=== PATIENT | female | born 1995 | race Caucasian/White ===

== ENCOUNTER 2024-01-30 20:42 | Emergency (ER) | payer SELFPAY ==
[~2024-01-30] VITALS: Ht 165.1 cm; Wt 110.7 kg
[2024-01-30 21:44] LABS: BASO % 0.4 % (0.0-1.0); EOS # 0.4 10^3/uL (0.0-0.5); EOS % 3.8 % (0.0-3.0); HEMATOCRIT 36.7 % (36.0-47.0); HEMOGLOBIN 11.7 g/dl (12.0-15.5); LYMPH # 3.3 10^3/uL (1.5-5.0); LYMPH % 33.6 % (24.0-44.0); MEAN CORPUSCULAR HEMOGLOBIN 27.3 pg (27.0-33.0); MEAN CORPUSCULAR HGB CONC 31.9 g/dl (32.0-36.5); MEAN CORPUSCULAR VOLUME 85.7 fl (80.0-96.0); MONO # 0.5 10^3/uL (0.0-0.8); MONO % 4.7 % (2.0-8.0); NEUTROPHILS # 5.6 10^3/uL (1.5-8.5); NEUTROPHILS % 57.3 % (36.0-66.0); PLATELET COUNT, AUTOMATED 344 10^3/uL (150-450); RED BLOOD COUNT 4.28 10^6/uL (4.00-5.40); WHITE BLOOD COUNT 9.8 10^3/uL (4.0-10.0)
[2024-01-30 22:09] LABS: LIPASE 31 U/L (12-53)
[2024-01-30 22:11] LABS: ALBUMIN 3.3 G/DL (3.2-5.2); ALKALINE PHOSPHATASE 81 U/L (46-116); ALT/SGPT 33 U/L (7.0-40); AST/SGOT 16 U/L (<34); BILIRUBIN,DIRECT < 0.1 MG/DL (<0.4); BILIRUBIN,TOTAL < 0.2 MG/DL (0.3-1.2); BLOOD UREA NITROGEN 13 MG/DL (9-23); CALCIUM LEVEL 8.6 MG/DL (8.5-10.1); CARBON DIOXIDE LEVEL 29 MMOL/L (20-31); CHLORIDE LEVEL 108 MMOL/L (98-107); CREATININE FOR GFR 0.66 MG/DL (0.55-1.30); GLOMERULAR FILTRATION RATE > 60.0 (>60); GLUCOSE, FASTING 85 MG/DL (60-100); POTASSIUM SERUM 4.8 MMOL/L (3.5-5.1); SODIUM LEVEL 141 MMOL/L (136-145); TOTAL PROTEIN 6.3 G/DL (5.7-8.2)
[2024-01-30 22:12] LABS: HCG, SERUM QUALITATIVE NEGATIVE (NEGATIVE)
[2024-01-30 23:18] VITALS: BP 143/81; TEMP 98.5; O2SAT 99
[2024-01-31] MEDS ORDERED: LIDO5DIS41 TD (13:54)
== END 2024-01-31 03:17 | disposition left against medical advice (07) ==
LOC: M ED 20:42
DX: Z53.21 Procedure and treatment not carried out due to patient leaving prior to being seen by health care provider (principal)

== ENCOUNTER 2024-01-31 10:52 | Emergency (ER) | payer SELFPAY ==
[~2024-01-31] VITALS: Ht 165.1 cm; Wt 110.1 kg
[2024-01-31 10:55] VITALS: TEMP 97.2
[2024-01-31] MEDS ORDERED: LIDO5DIS41 TD (13:54)
[2024-01-31 14:03] VITALS: BP 126/61; O2SAT 97
[2024-01-31] MEDS: LIDOCAINE 5% (LIDODERM) PATCH TD ONE (14:03)
== END 2024-01-31 14:07 | disposition home or self-care (01) ==
LOC: M ED 10:52
DX: S22.32XA Fracture of one rib, left side, initial encounter for closed fracture (principal); Y92.9 Unspecified place or not applicable; Y93.9 Activity, unspecified; Y99.9 Unspecified external cause status; Y04.0XXA Assault by unarmed brawl or fight, initial encounter; Z88.8 Allergy status to other drugs, medicaments and biological substances; Z88.1 Allergy status to other antibiotic agents; Z91.012 Allergy to eggs; Z79.899 Other long term (current) drug therapy

== ENCOUNTER 2024-03-28 03:04 | Emergency (ER) | payer MEDICAID, SELFPAY ==
[~2024-03-28] VITALS: Ht 165.1 cm; Wt 97.7 kg
[~2024-03-28 03:04] MED LIST: LIDO5DIS41 TD
[2024-03-28 03:12] VITALS: TEMP 97.6
[2024-03-28] MEDS: IPRATROPIUM 0.5MG/ALBUTEROL 2.5MG INH SOL UD 3ML (DUONEB) NEB PRN (04:29)
[2024-03-28] MEDS: dexAMETHasone 20MG/5ML VIAL IV ONE (05:02)
[2024-03-28 05:45] VITALS: BP 157/89; O2SAT 100
[2024-03-28] MEDS ORDERED: PRED10TA2 PO (05:50)
[2024-03-28] MEDS ORDERED: VENTAER INH (05:50)
== END 2024-03-28 06:05 | disposition home or self-care (01) ==
LOC: M ED 03:04
DX: J44.1 Chronic obstructive pulmonary disease with (acute) exacerbation (principal); F17.210 Nicotine dependence, cigarettes, uncomplicated; F10.10 Alcohol abuse, uncomplicated; Z88.8 Allergy status to other drugs, medicaments and biological substances; Z91.012 Allergy to eggs; Z79.51 Long term (current) use of inhaled steroids; Z79.52 Long term (current) use of systemic steroids; Z79.899 Other long term (current) drug therapy
CPT/HCPCS: 94640; 96374; 99284; J1100

== ENCOUNTER 2024-04-14 20:25 | Emergency (ER) | payer SELFPAY ==
[~2024-04-14] VITALS: Ht 165.1 cm; Wt 106.2 kg
[2024-04-14 20:25] VITALS: BP 147/84; TEMP 97.2; O2SAT 98
[~2024-04-14 20:25] MED LIST changes: +PRED10TA2 PO; +VENTAER INH
== END 2024-04-14 20:30 | disposition left against medical advice (07) ==
LOC: M ED 20:25
DX: Z53.21 Procedure and treatment not carried out due to patient leaving prior to being seen by health care provider (principal)

== ENCOUNTER 2024-04-21 14:18 | Emergency (ER) | payer MEDICAID, SELFPAY ==
[~2024-04-21] VITALS: Ht 165.1 cm; Wt 106.4 kg
[2024-04-21 14:31] VITALS: BP 161/93; TEMP 98.8; O2SAT 99
[2024-04-21 15:04] LABS: BASO # 0.1 10^3/uL (0.0-0.2); BASO % 0.7 % (0.0-1.0); EOS # 0.2 10^3/uL (0.0-0.5); EOS % 1.4 % (0.0-3.0); HEMATOCRIT 41.8 % (36.0-47.0); HEMOGLOBIN 13.9 g/dl (12.0-15.5); LYMPH % 27.4 % (24.0-44.0); MEAN CORPUSCULAR HEMOGLOBIN 27.4 pg (27.0-33.0); MEAN CORPUSCULAR HGB CONC 33.3 g/dl (32.0-36.5); MEAN CORPUSCULAR VOLUME 82.3 fl (80.0-96.0); MONO # 0.7 10^3/uL (0.0-0.8); MONO % 6.2 % (2.0-8.0); NEUTROPHILS # 7.1 10^3/uL (1.5-8.5); PLATELET COUNT, AUTOMATED 369 10^3/uL (150-450); RED BLOOD COUNT 5.08 10^6/uL (4.00-5.40); WHITE BLOOD COUNT 11.1 10^3/uL (4.0-10.0)
[2024-04-21 15:27] LABS: BARBITURATES URINE NEGATIVE (NEGATIVE); BENZODIAZEPINES URINE NEGATIVE (NEGATIVE); CANNABINOIDS URINE NEGATIVE (NEGATIVE); COCAINE METABOLITE URINE NEGATIVE (NEGATIVE); METHADONE URINE NEGATIVE (NEGATIVE); OPIATES URINE NEGATIVE (NEGATIVE); PHENCYCLIDINE URINE NEGATIVE (NEGATIVE)
[2024-04-21 15:29] LABS: AMPHETAMINES LEVEL URINE POSITIVE (NEGATIVE)
[2024-04-21 15:31] LABS: HCG, SERUM QUALITATIVE NEGATIVE (NEGATIVE)
[2024-04-21 15:32] LABS: ALBUMIN 4.2 G/DL (3.2-5.2); ALKALINE PHOSPHATASE 80 U/L (46-116); ALT/SGPT 31 U/L (7.0-40); AST/SGOT 44 U/L (<34); BILIRUBIN,DIRECT 0.1 MG/DL (<0.4); BILIRUBIN,TOTAL 0.6 MG/DL (0.3-1.2); BLOOD UREA NITROGEN 9 MG/DL (9-23); CALCIUM LEVEL 9.2 MG/DL (8.5-10.1); CARBON DIOXIDE LEVEL 25 MMOL/L (20-31); CHLORIDE LEVEL 105 MMOL/L (98-107); GLOMERULAR FILTRATION RATE > 60.0 (>60); GLUCOSE, FASTING 106 MG/DL (60-100); LIPASE 33 U/L (12-53); SODIUM LEVEL 136 MMOL/L (136-145); TOTAL PROTEIN 7.6 G/DL (5.7-8.2)
== END 2024-04-21 15:05 | disposition left against medical advice (07) ==
LOC: EDBD 14:18 → M ED 14:18
DX: R10.9 Unspecified abdominal pain (principal); J44.9 Chronic obstructive pulmonary disease, unspecified; F17.200 Nicotine dependence, unspecified, uncomplicated; Z88.5 Allergy status to narcotic agent; Z88.6 Allergy status to analgesic agent; Z91.012 Allergy to eggs; Z79.52 Long term (current) use of systemic steroids; Z79.899 Other long term (current) drug therapy; Z53.9 Procedure and treatment not carried out, unspecified reason

== ENCOUNTER 2024-04-28 20:38 | Inpatient (IN) | payer MEDICAID ==
[~2024-04-28] VITALS: Ht 157.5 cm; Wt 106.0 kg
[2024-04-28 22:38] LABS: HEMATOCRIT 43.8 % (36.0-47.0); HEMOGLOBIN 14.3 g/dl (12.0-15.5); MEAN CORPUSCULAR HEMOGLOBIN 27.5 pg (27.0-33.0); MEAN CORPUSCULAR HGB CONC 32.6 g/dl (32.0-36.5); MEAN CORPUSCULAR VOLUME 84.2 fl (80.0-96.0); PLATELET COUNT, AUTOMATED 385 10^3/uL (150-450); WHITE BLOOD COUNT 16.2 10^3/uL (4.0-10.0)
[2024-04-28] MEDS: HALOPERIDOL LACTATE 5MG/ML VIAL IM ONE (23:00)
[2024-04-28] MEDS: LORazepam 2 MG/ML 1ML VIAL IM ONE (23:00)
[2024-04-28 23:06] LABS: ETHYL ALCOHOL (ETHANOL) < 0.003 % (0.000-0.010)
[2024-04-28 23:08] LABS: ALBUMIN 4.3 G/DL (3.2-5.2); ALKALINE PHOSPHATASE 86 U/L (46-116); ALT/SGPT 24 U/L (7.0-40); AST/SGOT 18 U/L (<34); BILIRUBIN,DIRECT 0.2 MG/DL (<0.4); BILIRUBIN,TOTAL 0.4 MG/DL (0.3-1.2); BLOOD UREA NITROGEN 18 MG/DL (9-23); CALCIUM LEVEL 9.7 MG/DL (8.5-10.1); CARBON DIOXIDE LEVEL 27 MMOL/L (20-31); CHLORIDE LEVEL 108 MMOL/L (98-107); CREATININE FOR GFR 0.61 MG/DL (0.55-1.30); GLOMERULAR FILTRATION RATE > 60.0 (>60); GLUCOSE, FASTING 92 MG/DL (60-100); SALICYLATE LEVEL < 3.0 MG/DL (<30); SODIUM LEVEL 142 MMOL/L (136-145); TOTAL PROTEIN 7.5 G/DL (5.7-8.2)
[2024-04-28 23:10] LABS: THYROID STIMULATING HORMONE 1.191 uIU/ML (0.55-4.78)
[2024-04-28 23:19] LABS: HCG, SERUM QUALITATIVE NEGATIVE (NEGATIVE)
[2024-04-28 23:41] LABS: BARBITURATES URINE NEGATIVE (NEGATIVE); BENZODIAZEPINES URINE NEGATIVE (NEGATIVE); CANNABINOIDS URINE NEGATIVE (NEGATIVE); COCAINE METABOLITE URINE NEGATIVE (NEGATIVE); METHADONE URINE NEGATIVE (NEGATIVE); OPIATES URINE NEGATIVE (NEGATIVE); PHENCYCLIDINE URINE NEGATIVE (NEGATIVE)
[2024-04-28 23:49] LABS: AMPHETAMINES LEVEL URINE POSITIVE (NEGATIVE)
[2024-04-29] MEDS ORDERED: MED REC CURRENTLY UNOBTAINABLE XX SCH (08:40)
[2024-04-29] MEDS ORDERED: HOME MED LIST COMPLETE! XX SCH (13:35)
[2024-04-29] MEDS ORDERED: MOM 30ML SUSPENSION UDC PO PRN (18:30)
[2024-04-29] MEDS ORDERED: MAALOX 30 ML SUSP *UDC PO PRN (18:30)
[2024-04-29 21:40] VITALS: BP 109/66; TEMP 97.8; O2SAT 98
[2024-04-29] MEDS: traZODone 50 MG TAB PO PRN (21:47)
[2024-04-29] MEDS: diphenhydrAMINE 25MG CAP PO PRN (21:47)
[2024-04-30 07:55] LABS: HEMATOCRIT 39.8 % (36.0-47.0); HEMOGLOBIN 12.9 g/dl (12.0-15.5); MEAN CORPUSCULAR HEMOGLOBIN 26.9 pg (27.0-33.0); MEAN CORPUSCULAR HGB CONC 32.4 g/dl (32.0-36.5); MEAN CORPUSCULAR VOLUME 83.1 fl (80.0-96.0); PLATELET COUNT, AUTOMATED 268 10^3/uL (150-450); RED BLOOD COUNT 4.79 10^6/uL (4.00-5.40); WHITE BLOOD COUNT 7.4 10^3/uL (4.0-10.0)
[2024-04-30] MEDS: OLANZapine 5 MG TAB PO SCH (09:00)
[2024-04-30] MEDS: NICOTINE 21MG/24HR 1 EA TRANSDERMAL TD SCH (10:03)
[2024-04-30] MEDS: OLANZapine ORAL DISINTEGRATING TAB 5MG PO PRN (16:02)
[2024-04-30] MEDS: LORazepam 2 MG TAB PO ONE (16:18)
[2024-04-30 16:48] VITALS: BP 120/77; TEMP 97.9; O2SAT 100
[2024-04-30] MEDS: IBUPROFEN 400MG TAB PO PRN (21:48)
[2024-05-01 06:40] VITALS: BP 115/57; TEMP 98.1; O2SAT 97
[2024-05-01] MEDS: NICOTINE 14 MG/24 HR TRANSDERMAL TD ONE (19:07)
[2024-05-01] MEDS: LORazepam 2 MG TAB PO PRN (19:45)
[2024-05-01] MEDS: OLANZapine 5 MG TAB PO SCH (21:26)
[2024-05-01] MEDS: PILL CUTTER 1 EACH XX PRN (21:27)
[2024-05-01 21:28] LABS: CK-MB VALUE MASS < 1.0 NG/ML (<3.6)
[2024-05-01 21:30] LABS: CPK CREATINE PHOSPHOKINASE 93 U/L (34-145); MB/CK RELATIVE INDEX 1.07 (< OR =4)
[2024-05-02] MEDS ORDERED: LORazepam 2 MG TAB PO SCH
[2024-05-02 16:18] VITALS: BP 112/62; TEMP 97.5; O2SAT 98
[2024-05-03 06:34] VITALS: BP 114/62; TEMP 98.3; O2SAT 100
[2024-05-03 17:48] VITALS: BP 119/77; TEMP 97.2; O2SAT 99
[2024-05-04 06:10] VITALS: BP 130/87; TEMP 96.2; O2SAT 98
[2024-05-04] MEDS ORDERED: OLAN1TAB16 PO (08:19)
[2024-05-04] MEDS ORDERED: TRAZ-252 PO (08:19)
[2024-05-04] MEDS ORDERED: OLAN2.5T25 PO (08:20)
== END 2024-05-04 10:00 | disposition home or self-care (01) | DRG 751 ==
LOC: M ED 20:38 → M ED INP 04-29 18:29 → M PSY 04-29 21:27
PROVIDERS: ADMIT Student in an Organized Health Care Education/Training Program; ATTEND Student in an Organized Health Care Education/Training Program
DX: F29 Unspecified psychosis not due to a substance or known physiological condition (principal); F25.9 Schizoaffective disorder, unspecified; R45.851 Suicidal ideations; F15.10 Other stimulant abuse, uncomplicated; Z91.52 Personal history of nonsuicidal self-harm; Z88.5 Allergy status to narcotic agent; Z88.6 Allergy status to analgesic agent; Z91.012 Allergy to eggs; R07.89 Other chest pain

== ENCOUNTER 2024-05-12 03:37 | Emergency (ER) | payer MEDICAID, SELFPAY ==
[~2024-05-12] VITALS: Ht 165.1 cm; Wt 100.0 kg
[~2024-05-12 03:37] MED LIST changes: +OLAN1TAB16 PO; +OLAN2.5T25 PO; +TRAZ-252 PO
[2024-05-12 03:38] VITALS: BP 135/81; TEMP 97.9; O2SAT 98
== END 2024-05-12 03:47 | disposition left against medical advice (07) ==
LOC: M ED 03:37
DX: Z53.21 Procedure and treatment not carried out due to patient leaving prior to being seen by health care provider (principal)

== ENCOUNTER 2024-05-12 04:43 | Inpatient (IN) | payer SELFPAY ==
[~2024-05-12] VITALS: Ht 165.1 cm; Wt 100.0 kg
[2024-05-12 05:51] LABS: HEMATOCRIT 39.9 % (36.0-47.0); HEMOGLOBIN 13.1 g/dl (12.0-15.5); MEAN CORPUSCULAR HEMOGLOBIN 27.3 pg (27.0-33.0); MEAN CORPUSCULAR HGB CONC 32.8 g/dl (32.0-36.5); MEAN CORPUSCULAR VOLUME 83.3 fl (80.0-96.0); PLATELET COUNT, AUTOMATED 369 10^3/uL (150-450); RED BLOOD COUNT 4.79 10^6/uL (4.00-5.40); WHITE BLOOD COUNT 11.5 10^3/uL (4.0-10.0)
[2024-05-12 06:14] LABS: ETHYL ALCOHOL (ETHANOL) < 0.003 % (0.000-0.010); SALICYLATE LEVEL < 3.0 MG/DL (<30)
[2024-05-12 06:15] LABS: ALKALINE PHOSPHATASE 83 U/L (46-116); ALT/SGPT 21 U/L (7.0-40); AST/SGOT 13 U/L (<34); BILIRUBIN,DIRECT 0.2 MG/DL (<0.4); BILIRUBIN,TOTAL 0.5 MG/DL (0.3-1.2); BLOOD UREA NITROGEN 13 MG/DL (9-23); CALCIUM LEVEL 9.4 MG/DL (8.5-10.1); CARBON DIOXIDE LEVEL 29 MMOL/L (20-31); CHLORIDE LEVEL 105 MMOL/L (98-107); CREATININE FOR GFR 0.53 MG/DL (0.55-1.30); GLOMERULAR FILTRATION RATE > 60.0 (>60); GLUCOSE, FASTING 81 MG/DL (60-100); POTASSIUM SERUM 3.6 MMOL/L (3.5-5.1); SODIUM LEVEL 141 MMOL/L (136-145)
[2024-05-12 06:23] LABS: HCG, SERUM QUALITATIVE NEGATIVE (NEGATIVE)
[2024-05-12 07:16] LABS: BARBITURATES URINE NEGATIVE (NEGATIVE); BENZODIAZEPINES URINE NEGATIVE (NEGATIVE); CANNABINOIDS URINE NEGATIVE (NEGATIVE); COCAINE METABOLITE URINE NEGATIVE (NEGATIVE); METHADONE URINE NEGATIVE (NEGATIVE); OPIATES URINE NEGATIVE (NEGATIVE); PHENCYCLIDINE URINE NEGATIVE (NEGATIVE)
[2024-05-12 07:29] LABS: AMPHETAMINES LEVEL URINE POSITIVE (NEGATIVE)
[2024-05-12] MEDS ORDERED: HOME MED LIST COMPLETE! XX SCH (07:50)
[2024-05-12] MEDS ORDERED: IBUPROFEN 400MG TAB PO PRN (17:10)
[2024-05-12] MEDS ORDERED: MAALOX 30 ML SUSP *UDC PO PRN (17:10)
[2024-05-12] MEDS ORDERED: MOM 30ML SUSPENSION UDC PO PRN (17:10)
[2024-05-12 18:00] VITALS: BP 139/72; TEMP 96.9
[2024-05-12] MEDS: diphenhydrAMINE 25MG CAP PO PRN (19:30)
[2024-05-12] MEDS: traZODone 50 MG TAB PO PRN (19:30)
[2024-05-12] MEDS ORDERED: LORazepam 2 MG/ML 1ML VIAL As Ordered ONE (20:05)
[2024-05-12] MEDS ORDERED: HALOPERIDOL LACTATE 5MG/ML VIAL As Ordered ONE (20:05)
[2024-05-12] MEDS: HALOPERIDOL LACTATE 5MG/ML VIAL IM STA (20:09)
[2024-05-12] MEDS: LORazepam 2 MG/ML 1ML VIAL IM STA (20:09)
[2024-05-12 20:45] VITALS: BP 136/62; TEMP 96.9; O2SAT 99
[2024-05-12 21:00] VITALS: BP 124/64; TEMP 96.8; O2SAT 98
[2024-05-12 21:15] VITALS: BP 125/59; TEMP 97.1; O2SAT 95
[2024-05-12 21:30] VITALS: BP 114/62; TEMP 96.5; O2SAT 96
[2024-05-13] MEDS: OLANZapine 5 MG TAB PO SCH (14:49)
[2024-05-14 06:54] VITALS: BP 111/66; TEMP 97.1; O2SAT 96
[2024-05-14] MEDS: OLANZapine 5 MG TAB PO SCH (13:16)
[2024-05-14] MEDS: OLANZapine 2.5MG TABLET PO SCH (20:11)
[2024-05-15 07:11] VITALS: BP 107/61; TEMP 96.9; O2SAT 99
[2024-05-15] MEDS: OLANZapine 5 MG TAB PO SCH (20:25)
[2024-05-16 06:39] VITALS: BP 127/64; TEMP 97.4; O2SAT 96
[2024-05-16 16:19] VITALS: BP 123/67; TEMP 97.6; O2SAT 96
[2024-05-16] MEDS: NICOTINE POLACRILEX 2 MG GUM PO PRN (19:04)
[2024-05-16] MEDS: LORazepam 1 MG TAB PO PRN (21:28)
[2024-05-17 16:32] VITALS: BP 112/69; TEMP 98; O2SAT 96
[2024-05-18 06:40] VITALS: BP 107/59; TEMP 97; O2SAT 95
[2024-05-18] MEDS ORDERED: OLAN1TAB16 PO (08:40)
[2024-05-18] MEDS ORDERED: NICO2GUM PO (08:40)
== END 2024-05-18 09:35 | disposition home or self-care (01) | DRG 751 ==
LOC: M ED 04:43 → M ED INP 17:06 → M PSY 17:57
PROVIDERS: ADMIT Student in an Organized Health Care Education/Training Program; ATTEND Student in an Organized Health Care Education/Training Program
DX: F29 Unspecified psychosis not due to a substance or known physiological condition (principal); F25.9 Schizoaffective disorder, unspecified; F15.14 Other stimulant abuse with stimulant-induced mood disorder; Z88.5 Allergy status to narcotic agent; Z88.6 Allergy status to analgesic agent; Z91.012 Allergy to eggs; F60.2 Antisocial personality disorder; Z56.0 Unemployment, unspecified; Z91.52 Personal history of nonsuicidal self-harm; Z78.1 Physical restraint status

== ENCOUNTER 2024-05-22 00:32 | Emergency (ER) | payer SELFPAY ==
[~2024-05-22] VITALS: Ht 165.1 cm; Wt 100.5 kg
[~2024-05-22 00:32] MED LIST changes: +NICO2GUM PO
[2024-05-22 00:33] VITALS: BP 135/71; TEMP 99.2; O2SAT 100
[2024-05-22 03:52] LABS: Trichomonas vaginalis (AMP) POSITIVE (NEGATIVE)
[2024-05-22 04:25] LABS: GC DNA AMPLIFICATION NEGATIVE (NEGATIVE)
[2024-05-23] MEDS ORDERED: TRAZ-252 PO (11:17)
[2024-05-23] MEDS ORDERED: NICO2GUM PO (11:17)
[2024-05-23] MEDS ORDERED: OLAN1TAB16 PO (11:17)
== END 2024-05-22 05:29 | disposition left against medical advice (07) ==
LOC: M ED 00:32
DX: Z53.21 Procedure and treatment not carried out due to patient leaving prior to being seen by health care provider (principal)

== ENCOUNTER 2024-05-22 06:24 | Emergency (ER) | payer SELFPAY ==
[~2024-05-22] VITALS: Ht 165.1 cm; Wt 100.0 kg
[2024-05-22 07:26] LABS: BASO # 0.1 10^3/uL (0.0-0.2); BASO % 0.5 % (0.0-1.0); EOS # 0.3 10^3/uL (0.0-0.5); EOS % 2.8 % (0.0-3.0); HEMOGLOBIN 13.1 g/dl (12.0-15.5); LYMPH # 3.3 10^3/uL (1.5-5.0); LYMPH % 30.4 % (24.0-44.0); MEAN CORPUSCULAR HEMOGLOBIN 27.5 pg (27.0-33.0); MEAN CORPUSCULAR HGB CONC 32.8 g/dl (32.0-36.5); MONO # 0.8 10^3/uL (0.0-0.8); MONO % 7.1 % (2.0-8.0); NEUTROPHILS # 6.4 10^3/uL (1.5-8.5); PLATELET COUNT, AUTOMATED 323 10^3/uL (150-450); RED BLOOD COUNT 4.76 10^6/uL (4.00-5.40); WHITE BLOOD COUNT 10.9 10^3/uL (4.0-10.0)
[2024-05-22 07:56] LABS: HCG, SERUM QUALITATIVE NEGATIVE (NEGATIVE)
[2024-05-22 07:57] LABS: BLOOD UREA NITROGEN 7 MG/DL (9-23); CALCIUM LEVEL 9.2 MG/DL (8.5-10.1); CARBON DIOXIDE LEVEL 30 MMOL/L (20-31); CHLORIDE LEVEL 107 MMOL/L (98-107); CREATININE FOR GFR 0.56 MG/DL (0.55-1.30); GLOMERULAR FILTRATION RATE > 60.0 (>60); GLUCOSE, FASTING 82 MG/DL (60-100); POTASSIUM SERUM 4.2 MMOL/L (3.5-5.1); SODIUM LEVEL 141 MMOL/L (136-145)
[2024-05-22 08:23] VITALS: BP 150/97; TEMP 97.1; O2SAT 98
[2024-05-22] MEDS: metroNIDAZOLE (FLAGYL) 500MG TABLET PO ONE (08:27)
[2024-05-23] MEDS ORDERED: NICO2GUM PO (11:17)
[2024-05-23] MEDS ORDERED: OLAN1TAB16 PO (11:17)
[2024-05-23] MEDS ORDERED: TRAZ-252 PO (11:17)
== END 2024-05-22 09:00 | disposition home or self-care (01) ==
LOC: M ED 06:24
DX: A59.9 Trichomoniasis, unspecified (principal); F41.9 Anxiety disorder, unspecified; F12.10 Cannabis abuse, uncomplicated; Z88.1 Allergy status to other antibiotic agents; Z88.5 Allergy status to narcotic agent; Z91.012 Allergy to eggs; Z79.899 Other long term (current) drug therapy

== ENCOUNTER 2024-05-23 01:06 | Inpatient (IN) | payer MEDICAID, SELFPAY ==
[~2024-05-23] VITALS: Ht 165.1 cm; Wt 100.0 kg
[2024-05-23] MEDS: OLANZapine 5 MG TAB PO ONE (06:45)
[2024-05-23 08:54] LABS: HEMATOCRIT 39.8 % (36.0-47.0); HEMOGLOBIN 12.8 g/dl (12.0-15.5); MEAN CORPUSCULAR HEMOGLOBIN 27.6 pg (27.0-33.0); MEAN CORPUSCULAR HGB CONC 32.2 g/dl (32.0-36.5); MEAN CORPUSCULAR VOLUME 85.8 fl (80.0-96.0); PLATELET COUNT, AUTOMATED 254 10^3/uL (150-450); RED BLOOD COUNT 4.64 10^6/uL (4.00-5.40); WHITE BLOOD COUNT 8.2 10^3/uL (4.0-10.0)
[2024-05-23 09:28] LABS: ETHYL ALCOHOL (ETHANOL) 0.004 % (0.000-0.010)
[2024-05-23 09:29] LABS: SALICYLATE LEVEL < 3.0 MG/DL (<30)
[2024-05-23 09:31] LABS: THYROID STIMULATING HORMONE 1.622 uIU/ML (0.55-4.78)
[2024-05-23 09:33] LABS: ALBUMIN 3.4 G/DL (3.2-5.2); ALKALINE PHOSPHATASE 84 U/L (46-116); ALT/SGPT 18 U/L (7.0-40); AST/SGOT 11 U/L (<34); BILIRUBIN,DIRECT 0.2 MG/DL (<0.4); BILIRUBIN,TOTAL 0.4 MG/DL (0.3-1.2); BLOOD UREA NITROGEN 13 MG/DL (9-23); CALCIUM LEVEL 8.7 MG/DL (8.5-10.1); CARBON DIOXIDE LEVEL 30 MMOL/L (20-31); CHLORIDE LEVEL 109 MMOL/L (98-107); CREATININE FOR GFR 0.59 MG/DL (0.55-1.30); GLOMERULAR FILTRATION RATE > 60.0 (>60); GLUCOSE, FASTING 85 MG/DL (60-100); POTASSIUM SERUM 4.2 MMOL/L (3.5-5.1); SODIUM LEVEL 140 MMOL/L (136-145); TOTAL PROTEIN 6.1 G/DL (5.7-8.2)
[2024-05-23 09:38] LABS: AMPHETAMINES LEVEL URINE NEGATIVE (NEGATIVE); BARBITURATES URINE NEGATIVE (NEGATIVE); BENZODIAZEPINES URINE NEGATIVE (NEGATIVE); COCAINE METABOLITE URINE NEGATIVE (NEGATIVE); METHADONE URINE NEGATIVE (NEGATIVE); OPIATES URINE NEGATIVE (NEGATIVE); PHENCYCLIDINE URINE NEGATIVE (NEGATIVE)
[2024-05-23 09:39] LABS: CANNABINOIDS URINE NEGATIVE (NEGATIVE)
[2024-05-23] MEDS ORDERED: OLAN1TAB16 PO (11:17)
[2024-05-23] MEDS ORDERED: TRAZ-252 PO (11:17)
[2024-05-23] MEDS ORDERED: NICO2GUM PO (11:17)
[2024-05-23] MEDS ORDERED: HOME MED LIST COMPLETE! XX SCH (11:20)
[2024-05-23] MEDS: traZODone 50 MG TAB PO ONE (21:25)
[2024-05-24] MEDS ORDERED: NICOTINE POLACRILEX 2 MG GUM PO PRN (18:15)
[2024-05-24] MEDS: traZODone 50 MG TAB PO PRN (20:21)
[2024-05-24] MEDS: OLANZapine 5 MG TAB PO SCH (20:21)
[2024-05-25] MEDS ORDERED: MAALOX 30 ML SUSP *UDC PO PRN (14:40)
[2024-05-25] MEDS ORDERED: IBUPROFEN 400MG TAB PO PRN (14:40)
[2024-05-25] MEDS ORDERED: MOM 30ML SUSPENSION UDC PO PRN (14:40)
[2024-05-25 16:29] VITALS: BP 115/70; TEMP 97; O2SAT 96
[2024-05-25] MEDS: LORazepam 1 MG TAB PO STA (18:46)
[2024-05-25] MEDS: diphenhydrAMINE 25MG CAP PO PRN (18:46)
[2024-05-25] MEDS: traZODone 50 MG TAB PO PRN (19:59)
[2024-05-25] MEDS: OLANZapine 5 MG TAB PO PRN (19:59)
[2024-05-25] MEDS: QUEtiapine FUMARATE 50MG TAB PO ONE (20:52)
[2024-05-26 06:23] VITALS: BP 92/50; TEMP 98; O2SAT 96
[2024-05-26] MEDS: OLANZapine 10 MG TAB PO SCH (09:49)
== END 2024-05-26 10:53 | disposition home or self-care (01) | DRG 751 ==
LOC: M ED 01:06 → M ED INP 05-25 14:40 → M PSY 05-25 16:22
PROVIDERS: ADMIT Student in an Organized Health Care Education/Training Program; ATTEND Student in an Organized Health Care Education/Training Program
DX: F29 Unspecified psychosis not due to a substance or known physiological condition (principal); I10 Essential (primary) hypertension; F15.90 Other stimulant use, unspecified, uncomplicated; J44.9 Chronic obstructive pulmonary disease, unspecified; J45.909 Unspecified asthma, uncomplicated; Z59.00 Homelessness unspecified; Z76.0 Encounter for issue of repeat prescription; Z56.0 Unemployment, unspecified

== ENCOUNTER 2024-05-28 10:25 | Emergency (ER) | payer SELFPAY ==
[~2024-05-28] VITALS: Ht 165.1 cm; Wt 96.2 kg
[2024-05-28 11:03] LABS: HEMATOCRIT 41.8 % (36.0-47.0); HEMOGLOBIN 13.6 g/dl (12.0-15.5); MEAN CORPUSCULAR HEMOGLOBIN 27.8 pg (27.0-33.0); MEAN CORPUSCULAR HGB CONC 32.5 g/dl (32.0-36.5); MEAN CORPUSCULAR VOLUME 85.5 fl (80.0-96.0); PLATELET COUNT, AUTOMATED 299 10^3/uL (150-450); RED BLOOD COUNT 4.89 10^6/uL (4.00-5.40); WHITE BLOOD COUNT 11.3 10^3/uL (4.0-10.0)
[2024-05-28 11:28] LABS: BARBITURATES URINE NEGATIVE (NEGATIVE); BENZODIAZEPINES URINE NEGATIVE (NEGATIVE); COCAINE METABOLITE URINE NEGATIVE (NEGATIVE)
[2024-05-28 11:29] LABS: CANNABINOIDS URINE NEGATIVE (NEGATIVE); METHADONE URINE NEGATIVE (NEGATIVE); OPIATES URINE NEGATIVE (NEGATIVE); PHENCYCLIDINE URINE NEGATIVE (NEGATIVE)
[2024-05-28 11:34] LABS: AMPHETAMINES LEVEL URINE POSITIVE (NEGATIVE)
[2024-05-28 11:35] LABS: ETHYL ALCOHOL (ETHANOL) < 0.003 % (0.000-0.010)
[2024-05-28 11:36] LABS: SALICYLATE LEVEL < 3.0 MG/DL (<30)
[2024-05-28 11:37] LABS: ALBUMIN 4.2 G/DL (3.2-5.2); ALKALINE PHOSPHATASE 84 U/L (46-116); ALT/SGPT 26 U/L (7.0-40); AST/SGOT 21 U/L (<34); BILIRUBIN,DIRECT 0.3 MG/DL (<0.4); BILIRUBIN,TOTAL 0.7 MG/DL (0.3-1.2); BLOOD UREA NITROGEN 15 MG/DL (9-23); CALCIUM LEVEL 9.3 MG/DL (8.5-10.1); CARBON DIOXIDE LEVEL 25 MMOL/L (20-31); CHLORIDE LEVEL 105 MMOL/L (98-107); CREATININE FOR GFR 0.52 MG/DL (0.55-1.30); GLOMERULAR FILTRATION RATE > 60.0 (>60); GLUCOSE, FASTING 80 MG/DL (60-100); POTASSIUM SERUM 4.8 MMOL/L (3.5-5.1); SODIUM LEVEL 139 MMOL/L (136-145); TOTAL PROTEIN 7.4 G/DL (5.7-8.2)
[2024-05-28 11:41] LABS: THYROID STIMULATING HORMONE 1.147 uIU/ML (0.55-4.78)
[2024-05-28 12:03] LABS: HCG, SERUM QUALITATIVE NEGATIVE (NEGATIVE)
[2024-05-28] MEDS ORDERED: HOME MED LIST COMPLETE! XX SCH (14:20)
[2024-05-28] MEDS: traZODone 50 MG TAB PO SCH (19:37)
[2024-05-28] MEDS: OLANZapine 5 MG TAB PO SCH (19:37)
[2024-05-28] MEDS: QUEtiapine FUMARATE 100 MG TAB PO ONE (19:54)
[2024-05-29 09:25] VITALS: BP 115/68; TEMP 98.2; O2SAT 99
== END 2024-05-29 12:51 | disposition home or self-care (01) ==
LOC: M ED 10:25
DX: Z76.5 Malingerer [conscious simulation] (principal); I10 Essential (primary) hypertension; J44.9 Chronic obstructive pulmonary disease, unspecified; F17.210 Nicotine dependence, cigarettes, uncomplicated; F25.8 Other schizoaffective disorders; Z88.5 Allergy status to narcotic agent; Z91.012 Allergy to eggs; Z79.899 Other long term (current) drug therapy